=== PATIENT | male | born 1940 | race Caucasian/White ===

== ENCOUNTER → 2020-07-09 | Outpatient (CLI) | payer MEDICARE ==
[~2020-07-09] MED LIST: KEFLEX CAP 500500 MG PO; NEOSPORIN OINT15 GM OU
== END ==
LOC: LAB 10:13
DX: Z12.5 Encounter for screening for malignant neoplasm of prostate (principal)
CPT/HCPCS: 36415; G0103

== ENCOUNTER → 2020-08-27 | Outpatient (CLI) | payer MEDICARE | LOC: KOH-I 12:36 | DX: J20.9 Acute bronchitis, unspecified (principal) | CPT/HCPCS: 71046 ==

== ENCOUNTER → 2020-11-27 | Outpatient (CLI) | payer MEDICARE ==
[~2020-11-27] MED LIST changes: +AMIODARONE HCL200 MG PO; +ASPIRIN EC81 MG PO; +ATORVASTATIN CA40 MG PO; +CARDURA4 MG PO; +ELIQUIS5 MG PO; +FERROUS SULFAT325 MG PO; +FINASTERIDE5 MG PO; +FUROSEMIDE20 MG PO; +VITAMIN B-12500 MCG PO; +VITAMIN C500 M4 PO
[2020-11-27 15:53] LABS: HEMOGLOBIN 7.8 gm/dl (14.0-17.5); RED BLOOD COUNT 2.65 M/UL (4.20-5.50); WHITE BLOOD COUNT 6.9 K/UL (4.5-11.0)
== END ==
LOC: LAB 13:11
PROVIDERS: Nurse Practitioner Family
DX: D64.9 Anemia, unspecified (principal)
CPT/HCPCS: 36415; 85025

== ENCOUNTER 2021-01-11 23:41 | Emergency (ER) | payer MEDICARE ==
[~2021-01-11] VITALS: Ht 167.6 cm; Wt 72.6 kg
[~2021-01-11 23:41] MED LIST changes: -AMIODARONE HCL200 MG PO; -ASPIRIN EC81 MG PO; -ATORVASTATIN CA40 MG PO; -CARDURA4 MG PO; -ELIQUIS5 MG PO; -FERROUS SULFAT325 MG PO; -FINASTERIDE5 MG PO; -FUROSEMIDE20 MG PO; -VITAMIN B-12500 MCG PO; -VITAMIN C500 M4 PO
[2021-01-12 00:20] LABS: RED BLOOD COUNT 1.73 M/UL (4.20-5.50); WHITE BLOOD COUNT 7.8 K/UL (4.5-11.0)
[2021-01-12 00:22] LABS: HEMOGLOBIN 5.2 gm/dl (14.0-17.5)
[2021-01-12 00:43] LABS: BUN/CREATININE RATIO 39 (0-10)
[2021-01-12 17:58] LABS: HEMOGLOBIN 7.5 gm/dl (14.0-17.5)
[2021-01-12] MEDS ORDERED: AMIODARONE HCL200 MG PO (20:52)
[2021-01-12] MEDS ORDERED: ELIQUIS5 MG PO (20:53)
[2021-01-12] MEDS ORDERED: ASPIRIN EC81 MG PO (20:53)
[2021-01-12] MEDS ORDERED: ATORVASTATIN CA40 MG PO (20:54)
[2021-01-12] MEDS ORDERED: CARDURA4 MG PO (20:55)
[2021-01-12] MEDS ORDERED: VITAMIN B-12500 MCG PO (20:55)
[2021-01-12] MEDS ORDERED: FUROSEMIDE20 MG PO (20:56)
[2021-01-12] MEDS ORDERED: FINASTERIDE5 MG PO (20:56)
[2021-01-12] MEDS ORDERED: FERROUS SULFAT325 MG PO (20:57)
[2021-01-12] MEDS ORDERED: VITAMIN C500 M4 PO (20:57)
== END 2021-01-13 04:30 ==
LOC: ER1 23:41
PROVIDERS: Emergency Medicine; Family Medicine
DX: D64.9 Anemia, unspecified (principal); K92.2 Gastrointestinal hemorrhage, unspecified; R53.1 Weakness; Z20.822 Contact with and (suspected) exposure to COVID-19; I10 Essential (primary) hypertension; I48.91 Unspecified atrial fibrillation; Z79.82 Long term (current) use of aspirin; Z86.73 Personal history of transient ischemic attack (TIA), and cerebral infarction without residual deficits; Z79.01 Long term (current) use of anticoagulants; I25.2 Old myocardial infarction
CPT/HCPCS: 36430; 71045; 80053; 81001; 82270; 82550; 82553; 83874; 84484; 85014; 85018; 85025; 85610; 85730; 86850; 86900; 86901; 86920; 93005; 96374; 96376; 99285; C9113; P9016; U0002

== ENCOUNTER → 2021-03-23 | Outpatient (CLI) | payer MEDICARE ==
[~2021-03-23] VITALS: Ht 167.6 cm; Wt 72.6 kg
[~2021-03-23] MED LIST changes: +AMIODARONE HCL200 MG PO; +ASPIRIN EC81 MG PO; +ATORVASTATIN CA40 MG PO; +CARDURA4 MG PO; +ELIQUIS5 MG PO; +FERROUS SULFAT325 MG PO; +FINASTERIDE5 MG PO; +FUROSEMIDE20 MG PO; +VITAMIN B-12500 MCG PO; +VITAMIN C500 M4 PO
== END ==
LOC: OPSV 11:43
DX: D50.9 Iron deficiency anemia, unspecified (principal)
CPT/HCPCS: 96365; J1756

== ENCOUNTER → 2021-03-25 | Outpatient (CLI) | payer MEDICARE ==
[~2021-03-25] VITALS: Ht 167.6 cm; Wt 72.6 kg
== END ==
LOC: OPSV 09:37
DX: D50.9 Iron deficiency anemia, unspecified (principal)
CPT/HCPCS: 96365; J1756

== ENCOUNTER → 2021-03-30 | Outpatient (CLI) | payer MEDICARE ==
[~2021-03-30] VITALS: Ht 167.6 cm; Wt 72.6 kg
== END ==
LOC: OPSV 09:06
DX: D50.9 Iron deficiency anemia, unspecified (principal)
CPT/HCPCS: 96365; J1756

== ENCOUNTER → 2021-04-02 | Outpatient (CLI) | payer MEDICARE ==
[~2021-04-02] VITALS: Ht 167.6 cm; Wt 72.6 kg
== END ==
LOC: OPSV 04-01 10:00
DX: D50.9 Iron deficiency anemia, unspecified (principal)
CPT/HCPCS: 96365; J1756

== ENCOUNTER → 2021-04-06 | Outpatient (CLI) | payer MEDICARE | LOC: OPSV 10:00 | DX: D50.9 Iron deficiency anemia, unspecified (principal) | CPT/HCPCS: 96365; J1756 ==